=== PATIENT | female | born 1995 | race African-American/Black ===

== ENCOUNTER 2020-04-19 08:17 | Emergency (ER) | payer BC ==
[~2020-04-19] VITALS: Ht 177.8 cm; Wt 102.1 kg
[~2020-04-19 08:17] MED LIST: IBUPROFEN 800800 M1 PO; NORCO 5-325 TA1 EACH PO
[2020-04-19 08:37] LABS: URINE BILIRUBIN NEGATIVE (Negative); URINE BLOOD 3+ (Negative); URINE CLARITY CLEAR; URINE COLOR YELLOW; URINE GLUCOSE-RANDOM* NEGATIVE (Negative); URINE KETONES NEGATIVE (Negative); URINE LEUKOCYTES-REFLEX 1+ (Negative); URINE NITRITE-REFLEX NEGATIVE (Negative); URINE PROTEIN (DIPSTICK) NEGATIVE (Negative); URINE UROBILINOGEN 0.2 E.U./dl (0.2-1.0)
[2020-04-19 08:43] LABS: SSA (PROTEIN CONFIRMATORY) NEGATIVE (Negative)
[2020-04-19 08:51] LABS: CASTS None Seen /LPF (None Seen); CRYSTALS None Seen /LPF (None Seen); SQUAMOUS >10 Many /LPF (0-3); URINE RBC >20 Many /HPF (0-2)
[2020-04-19 08:52] LABS: URINE WBC-REFLEX 6-15 Few /HPF (0-5)
[2020-04-19 08:53] LABS: ABSOLUTE NEUTROPHILS 4.7 thou/uL (1.4-8.2); BASOPHILS 0.8 % (0.0-2.0); HEMOGLOBIN 12.5 gm/dL (12.0-15.0); LYMPHOCYTES 28.2 % (24.0-44.0); MCH 28.4 pg (26.0-34.0); MCHC 33.8 g/dL (28.0-37.0); MONOCYTES 11.3 % (1.0-8.0); PLATELET COUNT 367 thou/uL (150-400); POLYS 58.7 % (36.0-66.0); RBC 4.41 mil/uL (4.20-5.00); RDW 14.2 % (10.5-14.5); WBC 8.1 thou/uL (4.0-11.0)
[2020-04-19 08:53] LABS: BACTERIA-REFLEX 1-9 Few /HPF (None Seen)
[2020-04-19 09:04] LABS: CALCIUM 9.5 mg/dL (8.5-10.1); CREATININE 1.3 mg/dL (0.6-1.0); POTASSIUM 4.3 mmol/L (3.5-5.1)
[2020-04-19 09:10] LABS: ALBUMIN 3.8 g/dL (3.4-5.0); TOTAL BILIRUBIN 0.3 mg/dL (0.2-1.0); TOTAL PROTEIN 8.9 g/dL (6.4-8.2)
[2020-04-19] MEDS ORDERED: SENNA-DOCUSATE1 EAC1 PO (09:58)
[2020-04-19] MEDS ORDERED: ZOFRAN ODT4 MG PO (09:58)
[2020-04-19] MEDS ORDERED: NORCO 5-325 TA1 EAC2 PO (09:58)
[2020-04-19 10:08] VITALS: BP 111/74
== END 2020-04-19 10:10 | disposition home or self-care (01) ==
LOC: ER 08:17
PROVIDERS: Emergency Medicine
DX: N20.0 Calculus of kidney (principal); R11.10 Vomiting, unspecified; Z79.899 Other long term (current) drug therapy

== ENCOUNTER 2020-05-22 14:49 | Emergency (ER) | payer BC ==
[~2020-05-22] VITALS: Ht 177.8 cm; Wt 95.3 kg
[~2020-05-22 14:49] MED LIST changes: +NORCO 5-325 TA1 EAC2 PO; +SENNA-DOCUSATE1 EAC1 PO; +ZOFRAN ODT4 MG PO
[2020-05-22] MEDS ORDERED: NORFLEX100 MG PO (17:31)
[2020-05-22] MEDS ORDERED: NAPROSYN500 MG PO (17:31)
[2020-05-22 17:53] VITALS: BP 105/63
== END 2020-05-22 18:00 | disposition home or self-care (01) ==
LOC: ER 14:49
DX: R51 Headache (principal); Z79.899 Other long term (current) drug therapy